=== PATIENT | female | born 1995 | race African-American/Black ===

== ENCOUNTER 2016-10-05 08:53 | Emergency (ER) | payer MEDICAID ==
[~2016-10-05] VITALS: Ht 165.1 cm; Wt 55.0 kg
[2016-10-05] MEDS ORDERED: DIATR MEGLU/DIATRIZOATE SOLN 120ML ONE (10:39)
[2016-10-05] MEDS ORDERED: SODIUM CHLORIDE 0.9% 1,000 ML IV ONE (11:05)
[2016-10-05] MEDS ORDERED: ONDANSETRON HCL 4MG/2ML VIAL IV STA (11:05)
[2016-10-05] MEDS ORDERED: MORPHINE SULFATE 4 MG/ML CPJ (NOT FOR IM USE) IV STA (11:05)
[2016-10-05 11:32] LABS: BASOPHILS % 0.9 % (0.0-2.0); EOSINOPHILS % 0.4 % (0.0-5.0); HEMOGLOBIN. 11.8 g/dL (12.0-16.0); LYMPHOCYTES % 34.8 % (20.0-50.0); MEAN CORPUSCULAR HEMOGLOBIN 27.8 pg (28.0-32.0); MEAN CORPUSCULAR VOLUME 84.6 fL (81.0-99.0); MEAN PLATELET VOLUME 10.4 fl (7.4-10.4); MONOCYTES % 9.1 % (2.0-8.0); NEUTROPHILS % 54.8 % (40.0-76.0); PLATELET 200 x1000/uL (130-400); RED BLOOD CELL COUNT 4.25 mill/uL (4.2-5.4); RED CELL DISTRIBUTION WIDTH 13.5 % (11.6-14.6)
[2016-10-05 11:37] LABS: HCG SCREEN NEGATIVE
[2016-10-05 11:44] LABS: CARBON DIOXIDE 27 mEq/L (21-32); CHLORIDE 106 mEq/L (98-107)
[2016-10-05 11:52] LABS: CLARITY URINE CLEAR (CLEAR); COLOR URINE YELLOW (YELLOW); GLUCOSE URINE NEGATIVE (NEGATIVE); KETONES URINE TRACE (NEGATIVE); LEUKOCYTE ESTERASE URINE TRACE (NEGATIVE); NITRITE URINE NEGATIVE (NEGATIVE); OCCULT BLOOD URINE NEGATIVE (NEGATIVE); PROTEIN URINE NEGATIVE (NEGATIVE); SPECIFIC GRAVITY URINE 1.015 (1.005-1.030); UROBILINOGEN URINE 0.2 E.U./dL (0.2-1.0)
[2016-10-05 13:44] VITALS: BP 110/77
== END 2016-10-05 14:07 | disposition home or self-care (01) ==
LOC: ER 11:05
DX: N39.0 Urinary tract infection, site not specified (principal); A59.9 Trichomoniasis, unspecified; R11.10 Vomiting, unspecified
CPT/HCPCS: 36415; 74176; 80053; 81001; 83690; 84703; 85025; 96361; 96374; 96375; 99285; J2270; J2405; J7030; Z7610; Q9963

== ENCOUNTER 2017-03-03 12:16 | Emergency (ER) | payer MEDICAID ==
[~2017-03-03] VITALS: Ht 165.1 cm; Wt 57.0 kg
[2017-03-03 12:27] VITALS: BP 120/69
== END 2017-03-03 17:55 | disposition left against medical advice (07) ==
LOC: ER 12:46
DX: T78.40XA Allergy, unspecified, initial encounter (principal); Z53.21 Procedure and treatment not carried out due to patient leaving prior to being seen by health care provider

== ENCOUNTER 2017-08-20 17:43 | Emergency (ER) | payer MEDICAID ==
[~2017-08-20] VITALS: Ht 165.1 cm; Wt 53.0 kg
[2017-08-20 18:36] VITALS: BP 124/74
== END 2017-08-20 21:00 | disposition left against medical advice (07) ==
LOC: ER 18:31
DX: M79.671 Pain in right foot (principal); L84 Corns and callosities; F17.200 Nicotine dependence, unspecified, uncomplicated; F12.10 Cannabis abuse, uncomplicated
CPT/HCPCS: 99281

== ENCOUNTER 2018-03-15 07:34 | Emergency (ER) | payer MEDICAID ==
[~2018-03-15] VITALS: Ht 165.1 cm; Wt 55.0 kg
[2018-03-15 07:41] VITALS: BP 123/61
== END 2018-03-15 08:32 | disposition left against medical advice (07) ==
LOC: ER 08:28
DX: Z53.21 Procedure and treatment not carried out due to patient leaving prior to being seen by health care provider (principal)

== ENCOUNTER 2018-05-30 19:08 | Emergency (ER) | payer MEDICAID ==
[~2018-05-30] VITALS: Ht 165.1 cm; Wt 50.0 kg
[2018-05-30 19:13] VITALS: BP 113/72
== END 2018-05-30 23:30 | disposition left against medical advice (07) ==
LOC: ER 19:35
DX: R10.9 Unspecified abdominal pain (principal); Z53.21 Procedure and treatment not carried out due to patient leaving prior to being seen by health care provider

== ENCOUNTER 2018-10-28 22:15 | Emergency (ER) | payer MEDICAID ==
[~2018-10-28] VITALS: Ht 162.6 cm; Wt 59.2 kg
[2018-10-29] MEDS ORDERED: KETOROLAC 30MG/ML VIAL IV ONE (00:30)
[2018-10-29 01:13] LABS: BASOPHILS % 0.7 % (0.0-2.0); EOSINOPHILS % 2.8 % (0.0-5.0); HEMATOCRIT. 34.8 % (36.0-48.0); HEMOGLOBIN. 11.3 g/dL (12.0-16.0); LYMPHOCYTES % 55.4 % (20.0-50.0); MEAN PLATELET VOLUME 10.2 fl (7.4-10.4); MONOCYTES % 9.1 % (2.0-8.0); PLATELET 211 x1000/uL (130-400); RED BLOOD CELL COUNT 4.04 mill/uL (4.2-5.4); RED CELL DISTRIBUTION WIDTH 14.4 % (11.6-14.6)
[2018-10-29 01:22] LABS: CHLORIDE 107 mEq/L (98-107)
[2018-10-29] MEDS ORDERED: KETOROLAC 15MG/ML VIAL IV NR (01:30)
[2018-10-29 01:35] LABS: B-HCG QUANTITATIVE 8 mIU/mL (<3)
[2018-10-29 06:05] VITALS: BP 105/72
== END 2018-10-29 06:08 | disposition home or self-care (01) ==
LOC: ER 22:15
DX: R10.84 Generalized abdominal pain (principal); F12.10 Cannabis abuse, uncomplicated
CPT/HCPCS: 36415; 76830; 76856; 80048; 81025; 84702; 85025; 96374; 99284; J1885